=== PATIENT | female | born 1970 | race Caucasian/White ===

== ENCOUNTER → 2017-08-04 13:36 | Outpatient (CLI) | payer MEDICAID ==
[2015-10-22 17:59] VITALS: BMI 48.8
[~2017-08-04 13:36] MED LIST: LEVAQUIN750 MG PO; ROBITUSSIN AC (10 M1 PO
== END | disposition home or self-care (01) ==
LOC: D.MRI 07-22 13:30
DX: M54.12 Radiculopathy, cervical region (principal)

== ENCOUNTER 2018-01-03 00:14 | Inpatient (IN) | payer MEDICAID ==
[~2018-01-03] VITALS: Ht 160 cm; Wt 123.5 kg
--- NOTE | ~2018-01-03 | HP ---
PATIENT: WILLIE MURRIETA MEDICAL RECORD: [id number] ACCOUNT: [id number] LOCATION:[facility] D.2119 : 70 ADMISSION DATE: 01/03/18 HISTORY AND PHYSICAL EXAMINATION DATE OF ADMISSION: 01/03/2018. DIAGNOSES: 1. AFib. 2. Angina. 3. Abnormal ECG. HISTORY OF PRESENT ILLNESS: Mrs. Murrieta has no cardiac history. She has been feeling palpitations for the past few weeks. The palpitations got worse and were associated with chest pain yesterday. She was found to be in atrial fibrillation with rapid ventricular response, heart rates up to the 190. She was given sotalol. She was in and out of atrial fibrillation. Now, she does have a family history of coronary artery disease, history of diabetes. She has obesity as well, but has not been told that she is a diabetic. PHYSICAL EXAMINATION: GENERAL APPEARANCE: Well-nourished, well-developed, appears stated age. Level of distress, comfortable. PSYCHIATRIC: Mental status, alert, normal affect. Orientation, oriented to time, place and person. EYES: Lids and conjunctiva, noninjected. No discharge, no pallor. ENT: Lips, teeth, gums, normal dentition. Oropharynx, no cyanosis, no pallor. NECK: Carotid arteries, bilateral normal upstroke, no bruits, no thrills. JUGULAR VEINS: No jugular venous pressure or distention. CERVICAL LYMPH NODES: Nontender, nonenlarged. THYROID: Not enlarged. Nontender. No nodules. LUNGS: Respiratory effort, unlabored. CHEST: Normal curvature. No thoracic deformity. No chest wall tenderness. Percussion, resonant. Auscultation, clear. No wheezes, no rales, no rhonchi. CARDIOVASCULAR: Precordial exam, nondisplaced. No heaves or pericardial thrills. Rate and rhythm, regular. Heart sounds, normal S1, normal S2. No S3, no gallop, no rub. Systolic murmur, not heard. Diastolic murmur, not heard. EXTREMITIES: No cyanosis, no edema. Peripheral pulses, full and equal in all extremities, except as noted. No bruits appreciated. ABDOMEN: Soft, nondistended. Normal aorta. No bruit. Nontender. No masses. Liver, nontender, no hepatomegaly. Spleen, nontender, no splenomegaly. MUSCULOSKELETAL: No joint tenderness. No joint swelling. No erythema. NEUROLOGICAL: Normal gait, normal strength, normal tone. SKIN: Warm and dry. OVERALL IMPRESSION: Paroxysmal atrial fibrillation with chest tightness with a strong family history of coronary artery disease. We will start her on sotalol 120 mg b.i.d. Plan for coronary angiography in the a.m. Further care depends upon the findings of the angiography. TRANSINT:[id number] Voice Confirmation ID: [id number] DOCUMENT ID: [id number] HISTORY AND PHYSICAL [id number] WILLIE MURRIETA, AURELIA HARDWICK at 0951 CC: [id number] DICTATION DATE: 01/03/18 1025 TIE MAN: 01/03/18 1308 ADM IN [address] [place] [address]
--- NOTE | ~2018-01-03 | HEMODYNAMI ---
PATIENT:WILLIE PRESCOTT MEDICAL RECORD: [id number] : 70 [id number] AD[facility]ION DATE: 01/03/18 Generatedon:01/04/20189:51 Patient name: WILLIE PRESCOTT Patient #: [id number] SSN: : 1970 Date of study: 01/04/2018 Page: Of Hemodynamic Procedure Report Patient Data Patient Demographics Procedure consent was obtained First Name: WILLIE Gender: Female Last Name: KENYON : 1970 Patient #: [id number] Age: 47 year(s) Race: Additional ID: [id number] Contact details Address: [address] [address] State: [place] City: [place] Zip code: [address] Past Medical History Allergies Allergen Reaction Date Comments Reported Other allergy 01/04/2018 WASPS, BEES, GRASS, POLLEN Admission Admission Data Admission Date: 01/03/2018 Admission Time: 2:01 [facility] Results Lab Result Date: 01/04/2018 Lab Result Time: 0:00 Biochemistry Name Units Result Min Max BUN mg/dl 14 --(--*-)-- 7 18 Creatinine mg/dl 0.9 --(-*--)-- 0.6 1.3 CBC Name Units Result Min Max Hemoglobin g/dl 12.2 *-(----)-- 13.5 17.5 Procedure Procedure Types Cath Procedure Diagnostic Procedure LHC LHC w/Coronaries Procedure Description Procedure Date Procedure Date: 01/04/2018 Procedure Start Time: 9:44 Procedure End Time: 9:50 Procedure Staff Name Function Lauro Humphrey MD Performing Physician Giuliana Sepulveda RT Monitor Yessi Borjas RT Scrub Juan Parra RN Nurse Cathi Cox RN Nurse Procedure Data Cath Procedure Fluoroscopy Diagnostic fluoroscopy Total fluoroscopy Time: 0.9 time: 0.9 min min Diagnostic fluoroscopy Total fluoroscopy dose: 341 dose: 341 mGy mGy Contrast Material Contrast Material Type Amount (ml) Isovue 300 39 Entry Location Entry Primary Successful Side Size Upsize Upsize Entry Closure Colon ccessful Closure Location (Fr) 1 (Fr) 2 (Fr) Remarks Device Remarks Radial Right 6 Fr Mechanical artery Short Compression Estimated blood loss: 10 ml Diagnostic catheters Device Type Used For End Catheter Placement DIAGNOSTIC [place] 110cm 5 Procedure Fr catheter ([id number]) Procedure Complications No complications Procedure Medications Medication Administration Route Dosage Oxygen NC 2 l/min Lidocaine 2% added to field 20 Heparin Flush Bag added to field 2 bags (1000units/500ml NS) 0.9% NaCl I.V. 100 ml/hr Zofran I.V. 4 mg Versed I.V. 1 mg Fentanyl I.V. 50 mcg Radial Cocktail I.A. 1 syringe (Verapomil 2mg/Nitro 400mcg/Heparin 1500units) Versed I.V. 1 mg Fentanyl I.V. 50 mcg Versed I.V. 1 mg Hemodynamics Rest HGB: 12.2 (g/dl) Heart Rate: 72 (bpm) Snapshots Pre Cath Intra NCS Post Cath Vital Signs Time Heart Resp SPO2 etCO2 NIBP (mmHg) Rhythm Pain Sedation Rate (ipm) (%) (mmHg) Status Level (bpm) 8:51:38 73 28 98 27.8 143/74(116) NSR 0 (11) 10(A) , No pain 8:56:11 69 20 96 33.1 141/75(105) NSR 0 (11) 10(A) , No pain 9:00:41 69 20 96 29.3 136/76(98) NSR 0 (11) 10(A) , No pain 9:05:12 70 16 96 24 129/72(98) NSR 0 (11) 10(A) , No pain 9:09:38 71 17 97 33 123/76(105) NSR 0 (11) 10(A) , No pain 9:14:04 69 17 95 35.3 123/68(95) NSR 0 (11) 10(A) , No pain 9:18:31 70 18 96 39.8 129/67(95) NSR 0 (11) 10(A) , No pain 9:23:01 65 19 96 34.6 140/67(95) NSR 0 (11) 10(A) , No pain 9:27:29 69 14 94 11.2 134/72(95) NSR 0 (11) 10(A) , No pain 9:32:00 67 14 94 38.3 138/65(94) NSR 0 (11) 10(A) , No pain 9:36:30 69 14 94 36 133/73(94) NSR 0 (11) 10(A) , No pain 9:40:58 68 16 95 37.6 143/75(107) NSR 0 (11) 9(A) , No pain 9:45:29 79 20 94 35.3 146/73(103) NSR 0 (11) 9(A) , No pain 9:49:57 70 16 95 36.8 131/70(94) NSR 0 (11) 10(A) , No pain Medications Time Medication Route Dose Verified Delivered Reason Notes E ffectiveness by by 8:55:38 Oxygen NC 2 l/min Lauro Winkler used for Milagro Cox RN procedure 8:55:44 Lidocaine 2% added 20ml Lauro Rsetrepo for local to vial Milagro Humphrey MD anesthetic field 8:55:50 Heparin Flush added 2 bags Lauro Restrepo used for Bag to Milagro Humphrey MD procedure (1000units/500ml field NS) 8:55:58 0.9% NaCl I.V. 100 Lauro Winkler Per ml/hr Milagro Cox RN physician 8:56:14 Zofran I.V. 4 mg Lauro Winkler Per Milagro Cox RN physician 9:35:57 Versed I.V. 1 mg Lauro Winkler for sedation Milagro Cox RN 9:36:04 Fentanyl I.V. 50 mcg Lauro Winkler for sedation Milagro Cox RN 9:40:17 Versed I.V. 1 mg Lauro Restrepo for sedation Milagro Humphrey MD 9:40:20 Fentanyl I.V. 50 mcg Lauro Restrepo for sedation Milagro Humphrey MD 9:45:12 Radial Cocktail I.A. 1 Lauro Restrepo for (Verapomil syringe Milagro Humphrey MD vasodilation 2mg/Nitro 400mcg/Heparin 1500units) 9:45:55 Versed I.V. 1 mg Lauro Restrepo for sedation Milagro Humphrey MD Procedure Log Time Note 8:17:49 Informed consent obtained and on chart 8:18:07 Diagnostic Cath Status : Elective 8:18:37 Giulinaa Sepulveda RT(R) sent for patient. Start room use. 8:18:38 Time tracking: Regular hours (M-F 7:00 - 5:00) 8:18:44 Plan of Care:Hemodynamics will remain stable., Cardiac rhythm will remain stable., Comfort level will be maintained., Respiratory function will remain adequate., Patient/ family verbilizes understanding of procedure., Procedure tolerated without complication., Recovers from procedure without complications.. 8:35:54 Patient received from Med II to CCL 2 Alert and oriented. Tansferred to table in Supine position. 8:35:55 Warm blankets applied, and esperanza hugger turned on for patient comfort. 8:35:56 Correct patient and procedure confirmed by team. 8:35:58 ECG and BP/O2 sat monitors applied to patient. 8:48:59 Vital chart was started 8:49:02 Baseline sample Acquired. 8:49:07 Rhythm: sinus rhythm 8:49:09 Full Disclosure recording started 8:49:13 Pre-procedure instructions explained to patient. 8:49:13 Pre-op teaching completed and patient verbalized understanding. 8:49:15 Family in patients room. 8:49:17 Patient NPO since Midnight. 8:49:49 Patient allergic to Other allergyWASPS, BEES, GRASS, POLLEN 8:49:52 Is the patient allergic to Iodine/contrast media? No. 8:50:01 Patient not . Patient has had tubal. 8:55:14 Was the patient premedicated? Yes 8:55:16 Is patient on blood thinner?Yes 8:55:20 ACC The patient was administered the following blood thiners within the last 24 hours: ACCPlavix 8:55:23 Patient diabetic? No. 8:55:38 Oxygen 2 l/min NC was administered by Cathi Cox RN; used for procedure; 8:55:44 Lidocaine 2% 20ml vial added to field was administered by Lauro Humphrey MD; for local anesthetic; 8:55:50 Heparin Flush Bag (1000units/500ml NS) 2 bags added to field was administered by Lauro Humphrey MD; used for procedure; 8:55:52 Snore? Yes 8:55:55 Sleep apnea? No 8:55:58 0.9% NaCl 100 ml/hr I.V. was administered by Cathi Cox RN; Per physician; 8:56:04 Airway obstruction? No sob 8:56:14 Zofran 4 mg I.V. was administered by Cathi Cox RN; Per physician; 8:56:14 Patient pain scale 0/10 ?. 8:56:33 IV started by Cathi Cox RN inleft forearm with a 22 gauge IV catheter with 0.9% NaCl at KVO. 8:56:43 IV right hand D/C'd due to infiltration. 8:57:23 Lab Result : Creatinine 0.9 mg/dl 8:57:23 Lab Result : BUN 14 mg/dl 8:57:23 Lab Result : Hemoglobin 12.2 g/dl 8:57:28 Lab results completed and on chart. 8:57:33 Right Radial & Right Groin area was prepped with chlora-prep and draped in sterile fashion 8:57:34 Alarms reviewed by R. N. 8:57:35 Sharps counted by scrub and verified by R.N. 9:06:43 Zero performed for pressure channel P1 9:35:26 Physician arrived 9:35:27 --------ALL STOP TIME OUT------ 9:35:27 Final Timeout: patient, procedure, and site verified with staff and physician. All members of the team are in agreement. 9:35:30 Right Radial & Right Groin site verified by team. 9:35:36 Physical assessment completed. ASA score P 2 - A patient with mild systemic disease as per Lauro Humphrey MD. 9:35:42 Sedation plan: IV Moderate Sedation Medication:Versed, Fentanyl 9:35:51 Use device set Femoral Dx 9:35:52 ACIST Syringe (35219) opened to sterile field. 9:35:53 Bag Decanter () opened to sterile field. 9:35:56 Medline Cath Pack ([id number]) opened to sterile field. 9:35:57 Versed 1 mg I.V. was administered by Cathi Cox RN; for sedation; 9:35:57 DIAGNOSTIC WIRE .035 260cm J wire (758456) opened to sterile field. 9:35:58 ACIST Hand Control (43519) opened to sterile field. 9:35:59 ACIST Manifold (25009) opened to sterile field. 9:36:04 Fentanyl 50 mcg I.V. was administered by Cathi Cox RN; for sedation; 9:36:07 Tegaderm 4 x 4 (1626W) opened to sterile field. 9:36:28 SHEATH 6Fr Prelude Radial ([id number]) opened to sterile field. 9:40:17 Versed 1 mg I.V. was administered by Lauro Humphrey MD; for sedation; 9:40:20 Fentanyl 50 mcg I.V. was administered by Lauro Humphrey MD; for sedation; 9:43:47 Procedure started. 9:44:02 Local anesthetic to right radial artery with Lidocaine 2% by Lauro Humphrey MD.INITIAL ACCESS ONLY 9:44:19 A 6 Fr Short sheath was inserted into the Right Radial artery 9:44:38 A DIAGNOSTIC [place] 110cm 5 Fr catheter ([id number]) was advanced over the wire and used for Procedure. 9:44:55 LV angiography performed. 9:45:12 Radial Cocktail (Verapomil 2mg/Nitro 400mcg/Heparin 1500units) 1 syringe I.A. was administered by Lauro Humphrey MD; for vasodilation; 9:45:55 Versed 1 mg I.V. was administered by Lauro Humphrey MD; for sedation; 9:46:20 LCA angiography performed. 9:46:24 LV angiography performed. 9:46:55 RCA angiography performed. 9:47:36 EF : 60 % 9:47:40 Catheter removed. 9:48:02 Sheath removed intact; hemostasis achieved with Mechanical Compression to the Right Radial artery. 9:48:10 TR BAND Large ([id number]) opened to sterile field. 9:48:16 Procedure ended.(Physican Out) 9:48:30 Fluoroscopy time 00.90 minutes. 9:48:34 Flurop Dose total: 341 9:48:34 Fluoroscopy dose: 341 mGy 9:48:38 Contrast amount:Isovue 300 39ml. 9:48:40 Sharps counted by scrub and verified by R.N. 9:48:44 TR band inflated with 13cc of air. 9:48:45 Insertion/operative site no bleeding no hematoma. 9:49:01 Post right radial artery:stable 9:49:10 Post Procedure Pulses reassessed and unchanged 9:49:16 Post-procedure physical assessment completed. ASA score P 2 - A patient with mild systemic disease as per Lauro Humphrey MD. 9:49:19 Post procedure rhythm: unchanged. 9:49:23 Estimated blood loss: 10 ml 9:49:25 Post procedure instruction explained to patient.Patient verbalizes understanding. 9:49:51 Procedure and supply charges have been captured, reviewed, submitted and are correct. 9:50:15 Procedure Complication : No complications 9:50:17 Vital chart was stopped 9:50:18 See physician's report for complete and final results. 9:50:24 Report given to [facility]. 9:50:28 Patient transfered to [facility] with Stretcher. 9:50:30 Procedure ended. 9:50:30 Full Disclosure recording stopped 9:50:36 End room use (Document Last) Device Usage Item Name Manufacture Quantity Catalog Number Hospital Part Current M inimal Lot# / Charge Number Stock Stock Serial# Code ACIST Syringe Acist 1 14379 924181 255926 128991 2 0 (20994) [employer] Bag Decanter Microtek 1 2001S 433207 49799 325572 5 (2001S) Medical Inc. Medline Cath Cardinal 1 [id number] 322168 48833 251616 5 [facility] ([id number]) DIAGNOSTIC WIRE [facility] [place] 1 [id number] 785047 016210 453366 3 0 .035 260cm J wire (921937) ACIST Hand Acist 1 34047 523859 221819 708276 5 Control (17274) [employer] ACIST Manifold Acist 1 33483 943074 633794 425461 5 (86677) [employer] Inc Tegaderm 4 x 4 3M 1 1626W 243334 927271 066864 5 (1626W) SHEATH 6Fr Merit 1 [id number] 740529 383906 330422 5 Prelude Radial Medical ([id number]) DIAGNOSTIC Terumo 1 40-8535 380338 539661 427709 5 [place] 110cm 5 Fr catheter (718385) TR BAND Large Terumo 1 [id number] 422192 946307 152382 4 0 ([id number]) Signature Audit [place] Stage Time Signature Unsigned Intra-Procedure 01/04/2018 Giuliana Sepulveda 9:51:30 AM RT(R) Signatures Monitor : Giuliana Sepulveda Signature : RT Date : Time : [address], [facility]
--- NOTE | ~2018-01-03 | OP ---
PATIENT NAME: WILLIE PRESCOTT MEDICAL RECORD: [id number] :70 LOCATION:D.M2 D.2119 ADMISSION DATE:01/03/18 SURGEON: AURELIA YOUNGBLOOD MD DATE OF OPERATION: 01/04/2018 PROCEDURES: 1. Left heart catheterization. 2. Selective coronary angiography. 3. Left ventriculogram. INDICATION: Chest pain compatible with angina, atrial fibrillation. PROCEDURE IN DETAIL: After informed consent was obtained and after detailed description of the risks, benefits as well as alternative therapies, the patient elected to proceed with angiogram and heart catheterization. The right radial area was prepped and draped in normal sterile fashion. Right radial artery was cannulated via modified Seldinger technique with placement of 6-[place] Island[place] sheath. All catheters exchanged through this sheath. FINDINGS: The left ventriculogram was performed in standard 30-degree BOWMAN view, reveals good cardiac wall motion throughout all segments. Overall ejection fraction estimated 60%. SELECTIVE CORONARY ANGIOGRAPHY: Left main, left anterior descending, left circumflex, right coronary artery are all smooth-walled vessels with no angiographic evidence of coronary artery disease. OVERALL IMPRESSION: 1. No angiographic evidence of coronary artery disease. 2. Normal left heart pressures. 3. Normal left ventricular systolic function. Chest pain is noncardiac in etiology. Standard medical management on treatment of the dysrhythmia. TRANSINT:[id number] Voice Confirmation ID: [id number] DOCUMENT ID: [id number] AURELIA YOUNGBLOOD MD at 1403 CC: [id number] DICTATION DATE: 01/04/18 0953 SHIP'S MASTER: 01/04/18 1326 DIS IN 01/04/18 [address] [place] [address]
--- NOTE | ~2018-01-03 | DS ---
PATIENT:WILLIE MURRIETA :70 MEDICAL RECORD: [id number] DISCHARGE SUMMARY ADMISSION DATE: 01/03/18 DISCHARGE DATE: 01/04/18 DATE OF DISCHARGE: 01/04/2018. DIAGNOSES: 1. Paroxysmal atrial fibrillation. 2. Chest pain. 3. Normal cardiac catheterization this admission. HOSPITAL COURSE: Ms. Murrieta presents with atrial fibrillation and chest pain. She converted to sinus rhythm and remained so on Betapace. She underwent cardiac catheterization revealing no coronary artery disease. Discharged home. Continue the Betapace. Follow up with [facility] in one month. TRANSINT:[id number] Voice Confirmation ID: [id number] DOCUMENT ID: [id number] AURELIA YOUNGBLOOD MD at 1403 CC: [id number] DICTATION DATE: 01/04/18 0954 PARTS SALVAGER: 01/04/18 1349 DIS IN 01/04/18 [id number] [place] [address]
[2018-01-03 00:47] LABS: BASOPHILS 0.4 % (0-2); EOSINOPHILS 2.8 % (0-7); HEMATOCRIT 38.1 % (36.0-48.0); HEMOGLOBIN 12.2 g/dL (12-16); IMMATURE GRANULOCYTES 0.6 % (0-5); LYMPHOCYTES 34.5 % (15-50); MCH 26.5 pg (26.0-34.0); MCV 82.8 fL (80.0-100.0); MEAN PLATELET VOLUME 10.2 fL (7.4-10.4); NEUTROPHILS 56.7 % (40-80); PLATELET COUNT 296 10x3/uL (130-400); WBC 14.5 10x3/uL (4.8-10.8)
[2018-01-03 01:05] LABS: ALBUMIN 3.3 g/dL (3.4-5.0); ALKALINE PHOSPHATASE 107 U/L (46-116); ALT (SGPT) 45 U/L (10-68); BILIRUBIN - TOTAL 0.24 mg/dL (0.2-1.3); CALC OSMOLALITY 289 mosm/kg (275-300); CALCIUM 9.6 mg/dL (8.5-10.1); CARBON DIOXIDE 25.7 mmol/L (21.0-32.0); CHLORIDE - SERUM 104 mmol/L (98-107); CREATININE - SERUM 0.9 mg/dL (0.6-1.3); POTASSIUM - SERUM 4.2 mmol/L (3.5-5.1); PROTEIN - SERUM 8.3 g/dL (6.4-8.2); SODIUM 142 mmol/L (136-145); UREA NITROGEN 14 mg/dL (7-18); eGFR NON AFRICAN AMERICAN 71 mL/min (90-120)
[2018-01-03 01:06] LABS: APTT 32.6 SECONDS (22.8-39.4); INR 1.02 (0.85-1.17)
[2018-01-03 01:07] LABS: D-DIMER-QUANTITATIVE < 0.27 ug/mLFEU (0.20-0.54); GLUCOSE 201 mg/dL (74-106)
[2018-01-03 01:21] LABS: CREATINE KINASE 35 UL (21-215); MAGNESIUM - SERUM 1.8 mg/dL (1.8-2.4); PRO BNP 44 pg/mL (0-125)
[2018-01-03 01:22] LABS: TROPONIN-I < 0.017 ng/mL (0.000-0.060)
[2018-01-03 03:19] VITALS: BP 125/63; Ht 160 cm; Wt 123.5 kg
[2018-01-03] MEDS ORDERED: FISH OIL 1,2001 CAP PO (03:40)
[2018-01-03] MEDS ORDERED: ST. JOHN'S WOR300 MG PO (03:41)
[2018-01-03] MEDS ORDERED: MOTRIN600 MG (03:42)
[2018-01-03] MEDS ORDERED: EXCEDRIN EXTRA1 TAB PO (03:43)
[2018-01-03] MEDS ORDERED: MOTRIN600 MG PO (03:44)
[2018-01-03 04:00] VITALS: BP 125/63
[2018-01-03 07:23] LABS: BASOPHILS 0.5 % (0-2); EOSINOPHILS 3.2 % (0-7); HEMATOCRIT 36.9 % (36.0-48.0); HEMOGLOBIN 11.7 g/dL (12-16); LYMPHOCYTES 36.8 % (15-50); MCH 26.5 pg (26.0-34.0); MCHC 31.7 g/dL (31.0-37.0); MCV 83.7 fL (80.0-100.0); MEAN PLATELET VOLUME 10.6 fL (7.4-10.4); MONOCYTES 6.1 % (2-11); NEUTROPHILS 52.4 % (40-80); PLATELET COUNT 308 10x3/uL (130-400); RBC 4.41 10x6/uL (4.00-5.40); RDW 14.1 % (11.5-14.5)
[2018-01-03 07:54] LABS: CALC OSMOLALITY 287 mosm/kg (275-300); CALCIUM 9.2 mg/dL (8.5-10.1); CARBON DIOXIDE 21.6 mmol/L (21.0-32.0); CHLORIDE - SERUM 106 mmol/L (98-107); CREATININE - SERUM 0.8 mg/dL (0.6-1.3); GLUCOSE 200 mg/dL (74-106); POTASSIUM - SERUM 4.1 mmol/L (3.5-5.1); SODIUM 141 mmol/L (136-145); T4 THYROXIN - FREE 0.98 ng/dL (0.76-1.46); THYROID STIMULATING HORMONE 4.42 uIU/mL (0.36-3.74); UREA NITROGEN 14 mg/dL (7-18); eGFR NON AFRICAN AMERICAN 81 mL/min (90-120)
[2018-01-03 08:15] VITALS: BP 98/79
[2018-01-03 11:21] VITALS: BP 93/60
[2018-01-03 15:19] VITALS: BP 85/36
[2018-01-03 20:00] VITALS: BP 123/51
[2018-01-04] VITALS: BP 146/53
[2018-01-04 04:00] VITALS: BP 157/70
[2018-01-04 08:48] VITALS: BP 118/58
[2018-01-04] MEDS ORDERED: BETAPACE 120 M120 MG PO (11:13)
[2018-01-04 11:46] VITALS: BP 112/89
== END 2018-01-04 16:27 | disposition home or self-care (01) | DRG 287 ==
LOC: D.ER 00:14 → D.EDHOLD 02:01 → D.M2 02:01
PROVIDERS: Family Medicine; Internal Medicine Interventional Cardiology
PROC: B2151ZZ Fluoroscopy of Left Heart using Low Osmolar Contrast (ICD-10-PCS; 2018-01-04)
PROC: 4A023N7 Measurement of Cardiac Sampling and Pressure, Left Heart, Percutaneous Approach (ICD-10-PCS; 2018-01-04)
PROC: B2111ZZ Fluoroscopy of Multiple Coronary Arteries using Low Osmolar Contrast (ICD-10-PCS; principal; 2018-01-04 07:00)
DX: I48.0 Paroxysmal atrial fibrillation (principal); Z68.42 Body mass index [BMI] 45.0-49.9, adult; R94.31 Abnormal electrocardiogram [ECG] [EKG]; R07.89 Other chest pain; E66.9 Obesity, unspecified; Z82.49 Family history of ischemic heart disease and other diseases of the circulatory system

== ENCOUNTER 2018-06-25 21:20 | Emergency (ER) | payer MEDICAID ==
[~2018-06-25] VITALS: Ht 160 cm; Wt 113.6 kg
[~2018-06-25 21:20] MED LIST changes: +BETAPACE 120 M120 MG PO; +EXCEDRIN EXTRA1 TAB PO; +FISH OIL 1,2001 CAP PO; +MOTRIN600 MG; +MOTRIN600 MG PO; +ST. JOHN'S WOR300 MG PO
[2018-06-25 21:34] VITALS: Ht 160 cm; Wt 113.6 kg
[2018-06-25] MEDS ORDERED: VOLTAREN75 MG PO (22:19)
[2018-06-25 22:32] VITALS: BP 130/78
== END 2018-06-25 22:31 | disposition home or self-care (01) ==
LOC: D.ER 21:20
DX: S96.911A Strain of unspecified muscle and tendon at ankle and foot level, right foot, initial encounter (principal); X58.XXXA Exposure to other specified factors, initial encounter; Y93.89 Activity, other specified; Y92.019 Unspecified place in single-family (private) house as the place of occurrence of the external cause

== ENCOUNTER 2018-11-30 21:01 | Emergency (ER) | payer MEDICAID ==
[~2018-11-30] VITALS: Ht 160 cm; Wt 119.5 kg
[~2018-11-30 21:01] MED LIST changes: +VOLTAREN75 MG PO
[2018-11-30 21:09] VITALS: Ht 160 cm; Wt 119.5 kg
[2018-11-30 22:20] LABS: APTT 26.1 SECONDS (22.8-39.4); INR 1.07 (0.85-1.17); PROTIME 13.4 SECONDS (11.6-15.0)
[2018-11-30 22:22] LABS: D-DIMER-QUANTITATIVE 0.79 ug/mLFEU (0.20-0.54)
[2018-11-30 22:25] LABS: BASOPHILS 0.4 % (0-2); EOSINOPHILS 3.1 % (0-7); HEMATOCRIT 35.8 % (36.0-48.0); HEMOGLOBIN 11.7 g/dL (12-16); IMMATURE GRANULOCYTES 0.9 % (0-5); LYMPHOCYTES 30.5 % (15-50); MCHC 32.7 g/dL (31.0-37.0); MCV 82.5 fL (80.0-100.0); MEAN PLATELET VOLUME 9.9 fL (7.4-10.4); MONOCYTES 4.4 % (2-11); NEUTROPHILS 60.7 % (40-80); PLATELET COUNT 280 10x3/uL (130-400); RBC 4.34 10x6/uL (4.00-5.40); RDW 13.4 % (11.5-14.5); WBC 13.7 10x3/uL (4.8-10.8)
[2018-11-30 23:19] LABS: ALBUMIN 3.3 g/dL (3.4-5.0); ALKALINE PHOSPHATASE 112 U/L (46-116); ALT (SGPT) 62 U/L (10-68); BILIRUBIN - TOTAL 0.33 mg/dL (0.2-1.3); CALC OSMOLALITY 278 mosm/kg (275-300); CALCIUM 9.3 mg/dL (8.5-10.1); CARBON DIOXIDE 24.8 mmol/L (21.0-32.0); CHLORIDE - SERUM 99 mmol/L (98-107); CREATININE - SERUM 0.8 mg/dL (0.6-1.3); GLUCOSE 223 mg/dL (74-106); POTASSIUM - SERUM 4.1 mmol/L (3.5-5.1); PROTEIN - SERUM 8.3 g/dL (6.4-8.2); SODIUM 136 mmol/L (136-145); UREA NITROGEN 13 mg/dL (7-18); eGFR NON AFRICAN AMERICAN 81 mL/min (90-120)
[2018-11-30 23:28] LABS: CREATINE KINASE 36 UL (21-215); PRO BNP 30 pg/mL (0-125)
[2018-11-30 23:33] LABS: TROPONIN-I < 0.017 ng/mL (0.000-0.060)
[2018-12-01] MEDS ORDERED: ALBUTEROL SULF8.5 GM INH (01:29)
[2018-12-01] MEDS ORDERED: ZPAK PO (01:29)
[2018-12-01] MEDS ORDERED: MEDROL DOSE PACK4 MG PO (01:29)
[2018-12-01 02:06] VITALS: BP 123/70
== END 2018-12-01 02:08 | disposition home or self-care (01) ==
LOC: D.ER 21:01
PROVIDERS: Family Medicine
DX: R06.02 Shortness of breath (principal); D72.829 Elevated white blood cell count, unspecified

== ENCOUNTER 2019-02-05 21:16 | Emergency (ER) | payer MEDICAID ==
[~2019-02-05] VITALS: Ht 160 cm; Wt 118.2 kg
[~2019-02-05 21:16] MED LIST changes: +ALBUTEROL SULF8.5 GM INH; +MEDROL DOSE PACK4 MG PO; +ZPAK PO
[2019-02-05 21:20] VITALS: Ht 160 cm; Wt 118.2 kg
[2019-02-05 21:31] LABS: BASOPHILS 0.5 % (0-2); EOSINOPHILS 2.9 % (0-7); HEMATOCRIT 34.3 % (36.0-48.0); HEMOGLOBIN 11.4 g/dL (12-16); IMMATURE GRANULOCYTES 0.9 % (0-5); MCH 27.3 pg (26.0-34.0); MCHC 33.2 g/dL (31.0-37.0); MCV 82.1 fL (80.0-100.0); MEAN PLATELET VOLUME 9.7 fL (7.4-10.4); MONOCYTES 5.6 % (2-11); NEUTROPHILS 59.1 % (40-80); PLATELET COUNT 248 10x3/uL (130-400); RBC 4.18 10x6/uL (4.00-5.40); RDW 14.3 % (11.5-14.5); WBC 12.7 10x3/uL (4.8-10.8)
[2019-02-05 21:46] LABS: ALBUMIN 3.2 g/dL (3.4-5.0); ALKALINE PHOSPHATASE 125 U/L (46-116); ALT (SGPT) 68 U/L (10-68); BILIRUBIN - TOTAL 0.37 mg/dL (0.2-1.3); CALC OSMOLALITY 280 mosm/kg (275-300); CALCIUM 9.3 mg/dL (8.5-10.1); CARBON DIOXIDE 28.3 mmol/L (21.0-32.0); CHLORIDE - SERUM 100 mmol/L (98-107); GLUCOSE 214 mg/dL (74-106); POTASSIUM - SERUM 3.9 mmol/L (3.5-5.1); PROTEIN - SERUM 7.9 g/dL (6.4-8.2); SODIUM 137 mmol/L (136-145); UREA NITROGEN 15 mg/dL (7-18); eGFR NON AFRICAN AMERICAN 63 mL/min (90-120)
[2019-02-05 21:47] LABS: AMYLASE - SERUM 37 U/L (25-115); HCG SERUM NEGATIVE (NEGATIVE); LIPASE 250 U/L (73-393); TROPONIN-I < 0.017 ng/mL (0.000-0.060)
--- NOTE | 2019-02-05 21:48 | NUR ---
DR TILLEY NOTIFIED AND REVIEWED PT'S BEHAVIOR AND ASSESSMENT RESULTS. PT IS A LOW RISK PER DR TILLEY. DR TILLEY STATED TO GIVE RESOURCES TO PT AT TIME OF DISCHARGE. NO FURTHER ORDERS AT THIS TIME, RESOURCES REVIEWED WITH PT AND SHE VERBALIZED UNDERSTANDING.
[2019-02-05 22:13] LABS: APPEARANCE CLEAR (CLEAR); BILIRUBIN NEGATIVE (NEGATIVE); COLOR YELLOW (YELLOW); GLUCOSE NEGATIVE (NEGATIVE); KETONE NEGATIVE (NEGATIVE); NITRITE NEGATIVE (NEGATIVE); PROTEIN NEGATIVE (NEGATIVE); UROBILINOGEN NORMAL (NORMAL)
[2019-02-05] MEDS ORDERED: METFORMIN HCL500 M1 PO (22:45)
[2019-02-06] MEDS ORDERED: HYDROCODON-ACE1 EAC7 PO (01:29)
[2019-02-06 01:45] VITALS: BP 120/60
== END 2019-02-06 01:45 | disposition home or self-care (01) ==
LOC: D.ER 21:16
PROVIDERS: Emergency Medicine
DX: E11.9 Type 2 diabetes mellitus without complications (principal)

== ENCOUNTER 2019-03-14 07:50 | Day surgery (SDC) | payer MEDICAID ==
[2019-03-11 13:18] LABS: BASOPHILS 0.2 % (0-2); EOSINOPHILS 2.7 % (0-7); HEMATOCRIT 35.2 % (36.0-48.0); HEMOGLOBIN 11.5 g/dL (12-16); IMMATURE GRANULOCYTES 0.9 % (0-5); LYMPHOCYTES 31.2 % (15-50); MCH 27.4 pg (26.0-34.0); MCHC 32.7 g/dL (31.0-37.0); MCV 83.8 fL (80.0-100.0); MEAN PLATELET VOLUME 10.4 fL (7.4-10.4); MONOCYTES 4.1 % (2-11); NEUTROPHILS 60.9 % (40-80); PLATELET COUNT 221 10x3/uL (130-400); WBC 12.6 10x3/uL (4.8-10.8)
[~2019-03-14] VITALS: Ht 157.5 cm; Wt 114.3 kg
[~2019-03-14 07:50] MED LIST changes: +HYDROCODON-ACE1 EAC7 PO; +METFORMIN HCL500 M1 PO
[2019-03-14] MEDS ORDERED: ASCORBIC ACID500 MG PO (08:59)
[2019-03-14] MEDS ORDERED: CITRACAL + D E1 EACH PO (09:00)
[2019-03-14 09:01] VITALS: BP 112/59; Ht 157.5 cm; Wt 114.3 kg
[2019-03-14 09:22] LABS: HCG URINE NEGATIVE (NEGATIVE)
--- NOTE | 2019-03-14 12:30 | NUR ---
1230 PILLOW TO BACK FOR COMFORT, COOL CLOTHS TO FACE FOR NAUSEA, HAS BASIN AND ALCOHOL SWABS. FAMILY AT BEDSIDE.
--- NOTE | 2019-03-18 08:39 | OP ---
PATIENT NAME: WILLIE PRESCOTT MEDICAL RECORD: [id number] :70 LOCATION:D.[facility] ADMISSION DATE: SURGEON: PINKY AYALA MD DATE OF OPERATION: 03/14/2019 PREOPERATIVE DIAGNOSES: 1. Pelvic pain. 2. Dysfunctional uterine bleeding. POSTOPERATIVE DIAGNOSES: 1. Pelvic pain. 2. Dysfunctional uterine bleeding. 3. Pelvic adhesions. PROCEDURES: Diagnostic laparoscopy, hysteroscopy, D&C, ablation with Novasure. SURGEON: Pinky Ayala MD MANUFACTURING ENGINEER: Sammi. ANESTHESIOLOGIST: Dr. Brown. ANESTHETIC: General. FINDINGS: Uterus is adhered densely to the anterior abdominal wall above the level of the pelvic brim. The cervix is unremarkable and at the apex of the vault. Lush endometrium was encountered at the time of curettage. The uterus width is 3.5 cm, length of 6.5 cm. SPECIMENS REMOVED: Endometrial curettings. SPECIMEN DISPOSITION: Pathology. ESTIMATED BLOOD LOSS: Minimal. FLUIDS: 1 liter lactated Ringer's. URINE OUTPUT: Quantity sufficient void prior to this procedure. COMPLICATIONS: None. DRAINS: None. INDICATIONS: The patient is a 48-year-old female with dysfunctional bleeding and pelvic pain. The patient did have difficulties with visualization of the cervix in the clinic. The patient has had prior sections. The patient is consented for diagnostic laparoscopy to address her pelvic pain and dysmenorrhea and D&C with ablation for cyclic menorrhagia. DESCRIPTION OF PROCEDURE: After informed consent was assured, the patient was taken to the operating room, anesthetic was obtained. The patient was now prepped and draped in the usual sterile fashion after being placed in the [facility]. Attention was directed to the umbilicus where a supraumbilical incision was made and a trocar inserted. The pneumoperitoneum was developed and the patient was in Trendelenburg position. The uterus was OPERATIVE REPORT [id number] WILLIE PRESCOTT densely adhesed to the anterior abdominal wall below the site of Pfannenstiel skin incision. The ovaries were poorly visualized due to body habitus and adhesions. The laparoscopic portion of this case was discontinued. Pneumoperitoneum released and the incision site closed with a subcuticular stitch. Dermabond was applied. The legs were positioned for the vaginal portion of this case. A speculum was introduced and the cervix was grasped with single tooth tenaculums. The cervix was now dilated with Hanks dilators. This begins initial dilation with uterine sound and concludes with a #12 Hanks. This allows a hysteroscopy to be inserted with findings of the lush endometrium and both ostia visualized. The cervix was now continued to be dilated to accommodate a NovaSure device. Prior to insertion of the NovaSure, the length of the uterine cavity was established at 6.5 cm and the width is determined after placement of the device to be 3.5 cm. After the test sequence, the treatment was concluded after 55 seconds. The device was removed. Single tooth tenaculum removed from the cervix and the tenaculum site occluded with ring forceps, which were removed prior to moving the patient from the operation bed to the [facility]. Sponge, lap, needle counts were correct times 2. The patient went to the recovery area in stable condition. TRANSINT:[id number] Voice Confirmation ID: [id number] DOCUMENT ID: [id number] 03/16/[address] Ayala for procedure list, dmm. PINKY AYALA MD at 0839 CC: [id number] DICTATION DATE: 03/14/19 1123 AERONAUTICAL INSPECTOR: 03/14/19 1142 [facility] 03/14/19 [facility] [address] [place] [address]
== END 2019-03-14 13:50 | disposition home or self-care (01) ==
LOC: D.OPS 07:50 → D.PAN 10:00 → D.OPS 10:00
PROVIDERS: ATTEND Obstetrics & Gynecology
DX: N93.8 Other specified abnormal uterine and vaginal bleeding (principal); N73.6 Female pelvic peritoneal adhesions (postinfective); Z01.812 Encounter for preprocedural laboratory examination